=== PATIENT | female | born 1985 | race Caucasian/White ===

== ENCOUNTER 2017-03-27 16:30 | Outpatient (CLI) | payer BC ==
[~2017-03-27] VITALS: Ht 165.1 cm; Wt 83.0 kg
[~2017-03-27 16:30] MED LIST: PRISTIQ50 MG PO; [UNRECOGNIZED DRUG - OTHER]
[2017-03-27 16:41] VITALS: BP 123/83
[2017-03-27 17:41] LABS: EOSINOPHIL (%) 0.2 % (0-5); HEMATOCRIT 37.6 % (36.0-46.0); IMMATURE GRANULOCYTE (%) 2.1 % (0.0-0.7); IMMATURE GRANULOCYTE COUNT 0.3 K/uL; LYMPHOCYTE COUNT 2.2 K/uL (1.0-2.8); MCH 30.9 PG (29.0-34.0); MCHC 33.2 G/DL (30.0-36.0); MCV 93.1 FL (83-99); MEAN PLAT.VOLUME 10.2 uM^3 (9.5-12.4); MONOCYTE (%) 7.7 % (3-12); NEUTROPHIL (%) 72.1 % (45-76); PLATELET COUNT 278 K/uL (156-360); RBC DIS.WIDTH-CV 13.8 % (11.8-14.6); RBC DIS.WIDTH-SD 47.7 % (39-53); RED BLOOD COUNT 4.04 M/uL (3.80-5.20); WHITE BLOOD COUNT 12.5 K/uL (4.1-10.2)
[2017-03-27 17:43] LABS: ADD MIUA? YES; BILIRUBIN NEGATIVE; BLOOD MODERATE; COLOR STRAW ((YELLOW)); GLUCOSE (STRIP) NEGATIVE; KETONES NEGATIVE; LEUKOCYTES NEGATIVE; NITRITE NEGATIVE; PROTEIN (STRIP) NEGATIVE; SPECIFIC GRAVITY 1.004 (1.000-1.030); UROBILINOGEN 0.2 MG/DL (0.2-1.0)
[2017-03-27 18:26] LABS: EPITHELIAL CELLS 1+ /HPF; WHITE BLOOD CELLS 0-5 /HPF (0-5)
[2017-03-27 18:27] LABS: BACTERIA 1+ /HPF; CASTS NONE SEEN /LPF; CRYSTALS NONE SEEN; MUCUS NONE SEEN /LPF; UCUL ADDED? NO
[2017-03-27 18:32] VITALS: BP 122/83
[2017-03-27] MEDS ORDERED: PRENATAL TABLE1 EACH PO (18:56)
[2017-03-27 19:17] VITALS: BP 121/80
[2017-03-27 21:34] VITALS: BP 115/74
== END 2017-03-27 23:15 | disposition short-term general hospital (02) ==
LOC: LDRP-OP 16:30 → 2WEST 16:33 → LDRP-OP 07-08 09:53
PROVIDERS: Obstetrics & Gynecology
DX: O14.13 Severe pre-eclampsia, third trimester (principal); O46.93 Antepartum hemorrhage, unspecified, third trimester; O36.5130 Maternal care for known or suspected placental insufficiency, third trimester, not applicable or unspecified; Z3A.32 32 weeks gestation of pregnancy
CPT/HCPCS: 59025; 76805; 81003; 85025; 85460; G0378

== ENCOUNTER 2017-05-25 12:16 | Outpatient (CLI) | payer BC ==
[~2017-05-25 12:16] MED LIST changes: +PRENATAL TABLE1 EACH PO
[2017-05-25 12:49] VITALS: BP 124/87
[2017-05-25 13:02] LABS: EOSINOPHIL (%) 0.1 % (0-5); HEMATOCRIT 39.1 % (36.0-46.0); IMMATURE GRANULOCYTE COUNT 0.1 K/uL; LYMPHOCYTE COUNT 2.2 K/uL (1.0-2.8); MCH 30.8 PG (29.0-34.0); MCHC 33.2 G/DL (30.0-36.0); MCV 92.7 FL (83-99); MEAN PLAT.VOLUME 11.2 uM^3 (9.5-12.4); MONOCYTE (%) 6.4 % (3-12); MONOCYTE COUNT 0.6 K/uL (0-0.8); NEUTROPHIL (%) 70.1 % (45-76); PLATELET COUNT 222 K/uL (156-360); RBC DIS.WIDTH-CV 13.6 % (11.8-14.6); RBC DIS.WIDTH-SD 46.6 % (39-53); RED BLOOD COUNT 4.22 M/uL (3.80-5.20)
[2017-05-25 13:39] LABS: ANION GAP 11 MEQ/L (2-14); CHLORIDE 105 MEQ/L (99-109); POTASSIUM 4.2 MEQ/L (3.7-5.4); SAMPLE HEMOLYSIS CHECK 0; SAMPLE ICTERIC CHECK 0; SAMPLE LIPEMIA CHECK 0; SODIUM 138 MEQ/L (136-147); TOTAL BILIRUBIN 0.4 MG/DL (0.0-1.0)
[2017-05-25 13:45] LABS: ALKALINE PHOSPHATASE 144 IU/L (3-129); GFR ESTIMATE (CALCULATED) > 59 mL/min/; GLUCOSE 73 mg/dL (70-99); UREA NITROGEN (BUN) 7 mg/dL (9-23)
[2017-05-25 13:49] LABS: UR CREATININE CONCENTRATION 110.2 MG/DL
[2017-05-25 14:06] VITALS: BP 117/83
== END 2017-05-25 15:20 | disposition home or self-care (01) ==
LOC: LDRP-OP 12:16 → 2WEST 12:17 → LDRP-OP 07-08 23:50
PROVIDERS: Nurse Practitioner
DX: O13.3 Gestational [pregnancy-induced] hypertension without significant proteinuria, third trimester (principal); Z3A.38 38 weeks gestation of pregnancy
CPT/HCPCS: 59025; 80053; 82570; 84156; 85025; G0378

== ENCOUNTER 2017-06-03 06:02 | Inpatient (IN) | payer BC ==
[2017-06-03] VITALS (21 sets, daily range): BP systolic 115–146; BP diastolic 66–96
[~2017-06-03] VITALS: Ht 165.1 cm; Wt 88.9 kg
[2017-06-03 08:10] LABS: EOSINOPHIL (%) 0.2 % (0-5); IMMATURE GRANULOCYTE (%) 1.4 % (0.0-0.7); IMMATURE GRANULOCYTE COUNT 0.1 K/uL; INSTRUMENT ABS NEUTROPHIL CT 6.6 K/uL; LYMPHOCYTE COUNT 2.2 K/uL (1.0-2.8); MCHC 34.4 G/DL (30.0-36.0); MCV 93.1 FL (83-99); MEAN PLAT.VOLUME 11.7 uM^3 (9.5-12.4); MONOCYTE (%) 6.7 % (3-12); MONOCYTE COUNT 0.6 K/uL (0-0.8); NEUTROPHIL (%) 68.9 % (45-76); NEUTROPHIL COUNT 6.6 K/uL (1.8-6.4); PLATELET COUNT 193 K/uL (156-360); RBC DIS.WIDTH-CV 13.8 % (11.8-14.6); RBC DIS.WIDTH-SD 46.5 % (39-53); RED BLOOD COUNT 4.19 M/uL (3.80-5.20); WHITE BLOOD COUNT 9.5 K/uL (4.1-10.2)
[2017-06-03 08:39] LABS: ALKALINE PHOSPHATASE 147 IU/L (3-129); ANION GAP 8 MEQ/L (2-14); CHLORIDE 106 MEQ/L (99-109); GFR ESTIMATE (CALCULATED) > 59 mL/min/; GLUCOSE 80 mg/dL (70-99); POTASSIUM 3.9 MEQ/L (3.7-5.4); SAMPLE HEMOLYSIS CHECK 0; SAMPLE ICTERIC CHECK 0; SAMPLE LIPEMIA CHECK 0; SODIUM 136 MEQ/L (136-147); TOTAL BILIRUBIN 0.4 MG/DL (0.0-1.0); UREA NITROGEN (BUN) 7 mg/dL (9-23)
[2017-06-03] MEDS ORDERED: MOTRIN800 MG PO (21:52)
[2017-06-04 00:32] VITALS: BP 140/84
[2017-06-04 00:40] VITALS: BP 136/84
[2017-06-04 01:37] VITALS: BP 124/83
[2017-06-04 07:43] VITALS: BP 120/70
[2017-06-04 14:41] VITALS: BP 135/77
[2017-06-04 23:25] VITALS: BP 127/80
[2017-06-05 07:29] VITALS: BP 108/73
== END 2017-06-05 11:40 | disposition home or self-care (01) | DRG 775 ==
LOC: LDRP-OP 06:02 → 2WEST 06:03 → LDRP-OP 07-08 15:34
PROVIDERS: Obstetrics & Gynecology
PROC: 0HQ9XZZ Repair Perineum Skin, External Approach (ICD-10-PCS; principal; 2017-06-03)
PROC: 10E0XZZ Delivery of Products of Conception, External Approach (ICD-10-PCS; principal; 2017-06-03)
PROC: 3E0R3CZ (ICD-10-PCS; 2017-06-03)
PROC: 00HU33Z Insertion of Infusion Device into Spinal Canal, Percutaneous Approach (ICD-10-PCS; 2017-06-03)
DX: O70.0 First degree perineal laceration during delivery (principal); O63.0 Prolonged first stage (of labor); O69.81X0 Labor and delivery complicated by cord around neck, without compression, not applicable or unspecified; O13.4 Gestational [pregnancy-induced] hypertension without significant proteinuria, complicating childbirth; O99.824 Streptococcus B carrier state complicating childbirth; O99.354 Diseases of the nervous system complicating childbirth; G43.909 Migraine, unspecified, not intractable, without status migrainosus; Z88.0 Allergy status to penicillin; Z3A.39 39 weeks gestation of pregnancy; Z37.0 Single live birth
CPT/HCPCS: 80053; 82570; 84156; 85025; C1755; J0595; J2405; J3010; J7120